=== PATIENT | male | born 1995 | race Caucasian/White ===

== ENCOUNTER 2017-05-20 22:52 | Emergency (ER) | payer BC ==
[~2017-05-20] VITALS: Ht 188 cm; Wt 89.7 kg
[2017-05-20 22:57] VITALS: Ht 188 cm; Wt 89.7 kg
[2017-05-20] MEDS ORDERED: SODIUM CHLORIDE 0.9% 1000ML 1,000 ML IV STA (23:27)
[2017-05-20] MEDS ORDERED: KETOROLAC TROMETHAMINE 30 MG/ML VIAL IV STA (23:27)
[2017-05-20] MEDS ORDERED: ACETAMINOPHEN 500 MG TAB PO STA (23:29)
--- NOTE | 2017-05-20 23:30 | EMERGENCY ROOM VISIT NOTE ---
History Report prepared by Iain: Kendall Howell Under the Supervision of: Dr. Ramila Cespedes D.O. First contact with patient: 23:08 Chief Complaint: FLU LIKE SX Stated Complaint: FEVER,HEADACHE,BODY ACHE,COUGHING,SORE THROAT History of Present Illness The patient is a 21 year old male who presents to the Emergency Room with complaints of a constant fever and sore throat beginning this morning. The patient states that he was at home for spring break recently, and developed body aches on his commute back to school today. He notes that he experienced similar symptoms 2 weeks ago, but was able to sleep them off. He also complains of a body aches, headache, nausea, chills, cough, and of tasting blood. He denies having any known sick contacts. He reports that he took ibuprofen at 1800 today with no relief of his symptoms. The patient states that he has a history of sinus infections and strep throat. He notes that his current symptoms feel similar to when he has a sinus infection, but reports that he has more body aches than usual. The patient states that he did not receive a flu shot this year. Source of History: patient Onset: this morning Position: throat, other (global) Quality: ache Timing: constant Associated Symptoms: + fevers, + chills, + headache, + sorethroat, + cough, + nausea Note: The patient notes that he tastes blood. Review of Systems See HPI for pertinent positives & negatives. A total of 10 systems reviewed and were otherwise negative. Past Medical & Surgical Medical Problems: (1) Sinus infection (2) Strep throat Surgical Problems: (1) Hx of anterior cruciate ligament surgery Family History No pertinent family history stated. Social History Smoking Status: Never Smoker Marital Status: single Housing Status: lives with roommate Occupation Status: [employer] student Current/Historical Medications Scheduled Azithromycin (Zithromax), 250 MG PO DAILY Allergies Coded Allergies: No Known Allergies (Unverified , 05/20/17) Physical Exam Vital Signs Date Time Temp Pulse Resp B/P (MAP) Pulse Ox O2 Delivery O2 Flow Rate FiO2 05/21/17 00:32 38.1 110 20 124/55 98 Room Air 05/20/17 22:57 37.3 127 18 98 Room Air Physical Exam HEENT: Head - normocephalic and atraumatic Pupils are equal, round, and reactive to light. Extraocular eye muscles are intact, and sclera are anicteric. Nose - moist nasal mucosa without discharge. Mouth - moist buccal mucosa. Tonsillar edema, erythema, and exudate noted. Neck: Supple; no JVD, nuchal rigidity, cervical lymphadenopathy. Heart: Regular rhythm and tachycardic. There is a normal S1 and S2 with no murmurs, clicks, or gallops appreciated. Lungs: Clear to auscultation bilaterally with no wheezes, rales, or rhonchi. Abdomen: Soft, completely nontender, nondistended, with good bowel sounds. There are no palpable pulsatile masses or hepatosplenomegaly. There is no guarding, rigidity, or rebound noted. Extremities: No evidence of cyanosis, clubbing, or edema. There are easily palpable peripheral pulses. Skin: dry with good turgor and no rashes, skin is hot. Medical Decision & Procedures Laboratory Results 05/20/17 23:50 Red Blood Count 5.18, Mean Corpuscular Volume 89.4, Mean Corpuscular Hemoglobin 31.1, Mean Corpuscular Hemoglobin Concent 34.8, Mean Platelet Volume 10.6, Neutrophils (%) (Auto) 82.4, Lymphocytes (%) (Auto) 8.6, Monocytes (%) (Auto) 8.3, Eosinophils (%) (Auto) 0.3, Basophils (%) (Auto) 0.2, Neutrophils # (Auto) 9.35, Lymphocytes # (Auto) 0.98, Monocytes # (Auto) 0.94, Eosinophils # (Auto) 0.03, Basophils # (Auto) 0.02 05/20/17 23:50 Test 05/20/17 23:50 05/21/17 00:04 White Blood Count 11.34 K/uL (4.8-10.8) Red Blood Count 5.18 M/uL (4.7-6.1) Hemoglobin 16.1 g/dL (14.0-18.0) Hematocrit 46.3 % (42-52) Mean Corpuscular Volume 89.4 fL (80-100) Mean Corpuscular Hemoglobin 31.1 pg (25-34) Mean Corpuscular Hemoglobin Concent 34.8 g/dl (32-36) Platelet Count 155 K/uL (130-400) Mean Platelet Volume 10.6 fL (7.4-10.4) Neutrophils (%) (Auto) 82.4 % Lymphocytes (%) (Auto) 8.6 % Monocytes (%) (Auto) 8.3 % Eosinophils (%) (Auto) 0.3 % Basophils (%) (Auto) 0.2 % Neutrophils # (Auto) 9.35 K/uL (1.4-6.5) Lymphocytes # (Auto) 0.98 K/uL (1.2-3.4) Monocytes # (Auto) 0.94 K/uL (0.11-0.59) Eosinophils # (Auto) 0.03 K/uL (0-0.5) Basophils # (Auto) 0.02 K/uL (0-0.2) RDW Standard Deviation 41.8 fL (36.4-46.3) RDW Coefficient of Variation 12.8 % (11.5-14.5) Immature Granulocyte % (Auto) 0.2 % Immature Granulocyte # (Auto) 0.02 K/uL (0.00-0.02) Anion Gap 5.0 mmol/L (3-11) Est Creatinine Clear Calc Drug Dose 100.8 ml/min Estimated GFR () 86.2 Estimated GFR (Non- 74.4 BUN/Creatinine Ratio 11.1 (10-20) Calcium Level 9.2 mg/dl (8.5-10.1) Influenza Type A Antigen Neg for Influ A (NEG) Influenza Type B Antigen Neg for Influ B (NEG) Urine Color YELLOW Urine Appearance CLEAR (CLEAR) Urine pH >= 9.0 (4.5-7.5) Urine Specific Harrell 1.020 (1.000-1.030) Urine Protein NEG (NEG) Urine Glucose (UA) NEG (NEG) Urine Ketones NEG (NEG) Urine Occult Blood NEG (NEG) Urine Nitrite NEG (NEG) Urine Bilirubin NEG (NEG) Urine Urobilinogen NEG (NEG) Urine Leukocyte Esterase NEG (NEG) Laboratory results per my review. Medications Administered Medications (Trade) Dose Ordered Sig/Elen Route Start Time Stop Time Status Last Admin Dose Admin Sodium Chloride 1,000 ml @ 999 mls/hr Q1H1M STAT IV 05/20/17 23:27 05/21/17 00:27 DC 05/20/17 23:47 999 MLS/HR Ketorolac Tromethamine (Toradol Inj) 30 mg NOW STAT IV 05/20/17 23:27 05/20/17 23:28 DC 05/20/17 23:47 30 MG Acetaminophen (Tylenol Tab) 1,000 mg NOW STAT PO 05/20/17 23:29 05/20/17 23:30 DC 05/20/17 23:47 1,000 MG Azithromycin (Zithromax Tab) 500 mg NOW STAT PO 05/21/17 00:48 05/21/17 00:49 DC 05/21/17 01:03 500 MG Procedure 2327: Toradol Inj 30mg IV, Sodium Chloride 1000 ml @ 999 mls/hr IV. 2329: Acetaminophen 1000mg PO. 0048: Azithromycin 500mg PO ED Course 2322: The patient was evaluated in room B10. A complete history and physical examination were performed. Nursing notes and previous electronic medical records were reviewed. IV lock was established and labs were drawn as above. 2327: Toradol Inj 30mg IV, Sodium Chloride 1000 ml @ 999 mls/hr IV. 2329: Acetaminophen 1000mg PO. 0037: I reevaluated and updated the patient. He is feeling better and notes that his sore throat and body aches went away. He will be treated with antibiotics for pharyngitis and a sinus infection. 0048: Azithromycin 500mg PO 0103: Upon reevaluation, the patient. I discussed findings and results with him. The patient verbalized agreement of the treatment plan. He was discharged home. Medical Decision The patient is a 21 year old male who presents to the Emergency Room with complaints of a constant fever and sore throat beginning this morning. Differential diagnoses include: influenza, strep throat, sinus infection, sepsis , and pneumonia. Lab Results Show: Influenza negative. Normal renal function and glucose. White blood count of 11.3. Stable H&H. Rapid strep test negative. This is a 21-year-old male patient presents to the emergency department with a sore throat, fever and body aches. The patient has a history of previous strep infections and sinus infection. His symptoms seemed consistent with possible influenza. That testing was negative. However, on physical exam, the patient has obvious exudative tonsils and the patient felt that this could be consistent with 1 of his usual sinus infections. I have opted to treat the patient with antibiotics to cover sinusitis and pharyngitis. I have asked the patient to follow-up at the [facility] or return here to the ER if symptoms worsened. He can use NSAIDs for the body aches and sore throat. Medication Reconcilliation Current Medication List: was personally reviewed by me Blood Pressure Screening Patient's blood pressure: Normal blood pressure Blood pressure disposition: Did not require urgent referral Impression Primary Impression: Pharyngitis Additional Impression: Sinus infection Scribe Attestation The scribe's documentation has been prepared under my direction and personally reviewed by me in its entirety. I confirm that the note above accurately reflects all work, treatment, procedures, and medical decision making performed by me. Departure Information Dispostion Home / Self-Care Prescriptions Azithromycin (ZITHROMAX) 250 Mg Tab 250 MG PO DAILY, #4 TAB Prov: Ramila Cespedes D.O. 05/21/17 Forms HOME CARE DOCUMENTATION FORM, IMPORTANT VISIT INFORMATION Patient Instructions My [facility] Additional Instructions Rest Take motrin - 800mg every 8 hours with food for pain or fever. You can also use tylenol for fever Return to the ER if symptoms worsen. Zithromax - daily for 4 days Problem Qualifiers Primary Impression: Pharyngitis Pharyngitis/tonsillitis etiology: unspecified etiology Qualified Codes: J02.9 - Acute pharyngitis, unspecified Additional Impression: Sinus infection Sinusitis location: unspecified location Chronicity: acute Recurrence: recurrent Qualified Codes: J01.91 - Acute recurrent sinusitis, unspecified
[2017-05-20 23:57] LABS: BASO % 0.2 %; BASO ABS # 0.02 K/uL (0-0.2); EOS % 0.3 %; EOS ABS # 0.03 K/uL (0-0.5); HEMATOCRIT 46.3 % (42-52); HEMOGLOBIN 16.1 g/dL (14.0-18.0); IG# 0.02 K/uL (0.00-0.02); LYMPH % 8.6 %; LYMPH ABS # 0.98 K/uL (1.2-3.4); MEAN CELL VOLUME 89.4 fL (80-100); MEAN CORPUSCULAR HEMOGLOBIN 31.1 pg (25-34); MEAN CORPUSCULAR HGB CONC 34.8 g/dl (32-36); MEAN PLATELET VOLUME 10.6 fL (7.4-10.4); MONO % 8.3 %; MONO ABS # 0.94 K/uL (0.11-0.59); NEUT % 82.4 %; NEUT ABS # 9.35 K/uL (1.4-6.5); PLATELET COUNT 155 K/uL (130-400); RED CELL DISTRIBUTION WIDTH CV 12.8 % (11.5-14.5); RED CELL DISTRIBUTION WIDTH SD 41.8 fL (36.4-46.3); WHITE BLOOD COUNT 11.34 K/uL (4.8-10.8)
[2017-05-21 00:15] LABS: CALCIUM 9.2 mg/dl (8.5-10.1); CREATININE 1.36 mg/dl (0.60-1.40); POTASSIUM 3.6 mmol/L (3.5-5.1)
[2017-05-21 00:26] LABS: INFLUENZA B ANTIGEN Neg for Influ B (NEG)
[2017-05-21 00:32] VITALS: BP 124/55; PULSE 110; TEMP 38.1; O2SAT 98
[2017-05-21] MEDS ORDERED: AZITHROMYCIN 250 MG TAB PO STA (00:48)
[2017-05-21] MEDS ORDERED: AZIT250T PO (00:52)
== END 2017-05-21 01:03 | disposition home or self-care (01) ==
LOC: C.EDB 22:54
DX: J02.9 Acute pharyngitis, unspecified (principal); J01.91 Acute recurrent sinusitis, unspecified